=== PATIENT | male | born 1935 | race Caucasian/White ===

== ENCOUNTER 2016-08-25 17:45 | Emergency (ER) | payer OTHER ==
--- NOTE | 2016-08-25 18:54 | EDPHY ---
H & P Time Seen by Provider: 08/25/16 18:52 HPI/ROS: Chief complaint. Chest pain HPI. 81-year-old male here with chest discomfort for 1 day. He also has difficulty walking which previously has been problem manifesting as his heart. He started verapamil 1 week ago. He has a history of atrial fibrillation but refuses to take anticoagulants. He has left chest discomfort without radiation that he describes as an ache. Denies shortness of breath. Similar symptoms to previous NE. ROS Constitutional. no fever/chills, no weakness Eyes. no problems with vision ENT. no sore throat, no nasal drainage Cardiovascular. Left chest pain Respiratory. no shortness of breath, no cough Abdominal. no abdominal pain, no nausea/vomiting, no diarrhea . no problems urinating MS. no calf pain/swelling, no neck/back pain, no joint pain Skin. no rash Lymph. no swollen glands Neuro. Weak legs with difficulty walking Past Medical/Surgical History: Atrial fibrillation, non insulin-dependent diabetes, dyslipidemia, NE Social History: Single, nonsmoker, no alcohol Smoking Status: Never smoked Physical Exam: General Appearance: Alert well-developed male mild distress vital signs are stable Eyes: Pupils equal and round no pallor or injection. ENT, Mouth: Mucous membranes are moist. Respiratory: There are no retractions, lungs are clear to auscultation. Cardiovascular: Regular rate and rhythm. Gastrointestinal: Abdomen is soft and nontender, no masses, bowel sounds normal. Neurological: Awake and alert, sensory and motor exams grossly normal. Skin: Warm and dry, no rashes. Musculoskeletal: Neck is supple nontender. Extremities symmetrical, full range of motion. Psychiatric: Patient is oriented X 3, there is no agitation. Constitutional: Initial Vital Signs Temperature (C) 36.9 C 08/25/16 18:13 Heart Rate 88 08/25/16 18:13 Respiratory Rate 18 08/25/16 18:13 Blood Pressure 154/125 H 08/25/16 18:13 O2 Sat (%) 96 08/25/16 18:13 O2 Delivery Mode Room Air Allergies/Adverse Reactions: No Known Allergies Allergy (Verified 08/10/13 18:24) Home Medications: Medication Instructions Recorded Metformin HCl [Metformin 1000 mg] 1,000 mg PO BID 05/29/14 Unknown Secondary Diabetes Med 05/29/14 AZITHROMYCIN [Z-PACK] 500 mg PO DAILY #1 packet 09/22/14 Albuterol [Proventil] 2 puffs IH Q6 PRN #1 aerosol 09/22/14 Benzonatate [Tessalon Pearles] 200 mg PO BID PRN #15 cap 09/22/14 Medical Decision Making - Diagnostics EKG Interpretation: EKG interpreted by me shows atrial fibrillation with left axis deviation. PVCs are present. No significant ST elevation or depression. Rate is 90 Imaging: Chest x-ray interpreted by me is nonacute. No evidence for pneumonia Procedures: IV normal saline, aspirin ED Course/Re-evaluation: Re-evaluation at 8:15 p.m.. I discussed imaging EKG and lab results with the patient. We discussed treatment plan. I recommended admission for the patient. He declines. We discussed risks and benefits of admission versus going home. He appears competent. I have encouraged him to return tonight for any worsening symptoms and asked him to follow up with his regular physician tomorrow without fail. The patient expresses understanding and agreement - Data Points Laboratory Results: Laboratory Results 08/25/16 18:33 08/25/16 18:33 08/25/16 08/25/16 18:33 18:33 WBC 7.40 10^3/uL 10^3/uL (3.80-9.50) RBC 5.57 10^6/uL 10^6/uL (4.40-6.38) Hgb 16.3 g/dL g/dL (13.7-17.5) Hct 47.5 % % (40.0-51.0) MCV 85.3 fL fL (81.5-99.8) MCH 29.3 pg pg (27.9-34.1) MCHC 34.3 g/dL g/dL (32.4-36.7) RDW 12.3 % % (11.5-15.2) Plt Count 274 10^3/uL 10^3/uL (150-400) MPV 9.9 fL fL (8.7-11.7) Neut % (Auto) 59.0 % % (39.3-74.2) Lymph % (Auto) 23.6 % % (15.0-45.0) [place] % (Auto) 11.5 % % (4.5-13.0) Eos % (Auto) 4.5 % % (0.6-7.6) Baso % (Auto) 0.9 % % (0.3-1.7) Nucleat RBC Rel Count 0.0 % % (0.0-0.2) Absolute Neuts (auto) 4.36 10^3/uL 10^3/uL (1.70-6.50) Absolute Lymphs (auto) 1.75 10^3/uL 10^3/uL (1.00-3.00) Absolute Monos (auto) 0.85 10^3/uL H 10^3/uL (0.30-0.80) Absolute Eos (auto) 0.33 10^3/uL 10^3/uL (0.03-0.40) Absolute Basos (auto) 0.07 10^3/uL 10^3/uL (0.02-0.10) Absolute Nucleated RBC 0.00 10^3/uL 10^3/uL (0-0.01) Immature Gran % 0.5 % % (0.0-1.1) Immature Gran # 0.04 10^3/uL 10^3/uL (0.00-0.10) Sodium 139 mEq/L mEq/L (134-144) Potassium 4.4 mEq/L mEq/L (3.5-5.2) Chloride 102 mEq/L mEq/L (97-110) Carbon Dioxide 25 mEq/l mEq/l (22-31) Anion Gap 12 mEq/L mEq/L (8-16) BUN 26 mg/dL H mg/dL (7-23) Creatinine 1.4 mg/dL H mg/dL (0.7-1.3) Estimated GFR 49 Glucose 176 mg/dL H mg/dL (70-100) Calcium 9.6 mg/dL mg/dL (8.5-10.4) Troponin I 0.023 ng/mL ng/mL (0-0.034) Medications Given: Discontinued Medications Aspirin (Aspirin) 324 mg PO EDNOW ONE Stop: 08/25/16 19:11 Last Admin: 08/25/16 19:11 Dose: 324 mg Departure - Departure Disposition: Home, Routine, Self-Care Clinical Impression: Chest pain Qualifiers: Chest pain type: unspecified Qualified Code(s): R07.9 - Chest pain, unspecified Atrial fibrillation Qualifiers: Atrial fibrillation type: unspecified Qualified Code(s): I48.91 - Unspecified atrial fibrillation Condition: Fair Instructions: Chest Pain (ED) Additional Instructions: Continue regular medication. Return tonight for worsening chest discomfort or trouble breathing. Follow up tomorrow with Dr. Strauss without fail Referrals: NONE *PRIMARY CARE P,. [Primary Care Provider] - As per Instructions Awais Strauss [Doctor of Osteopathy] - 1 day without fail
[2016-08-25 18:58] LABS: % IMMATURE GRANULYOCYTES 0.5 % (0.0-1.1); ABSOLUTE IMMATURE GRANULOCYTES 0.04 10^3/uL (0.00-0.10); ADD DIFF? NO; ADD MORPH? NO; ADD SCAN? NO; ATYPICAL LYMPHOCYTE FLAG 10 (0-99); FRAGMENT RBC FLAG 0 (0-99); HEMATOCRIT 47.5 % (40.0-51.0); HEMOGLOBIN 16.3 g/dL (13.7-17.5); LEFT SHIFT FLG 0 (0-99); LIPEMIA HEMOLYSIS FLAG 90 (0-99); MEAN CELL HEMOGLOBIN 29.3 pg (27.9-34.1); MEAN CELL HEMOGLOBIN CONCENTR. 34.3 g/dL (32.4-36.7); MEAN CELL VOLUME 85.3 fL (81.5-99.8); MEAN PLATELET VOLUME 9.9 fL (8.7-11.7); PLATELET CLUMPS FLAG 30 (0-99); PLATELET COUNT 274 10^3/uL (150-400); RED BLOOD CELL COUNT 5.57 10^6/uL (4.40-6.38); RED CELL DISTRIBUTION WIDTH 12.3 % (11.5-15.2)
[2016-08-25 19:05] LABS: ANION GAP 12 mEq/L (8-16); CALCIUM 9.6 mg/dL (8.5-10.4); CARBON DIOXIDE 25 mEq/l (22-31); CHLORIDE 102 mEq/L (97-110); CREATININE 1.4 mg/dL (0.7-1.3); GLOMERULAR FILTRATION RATE 49; GLUCOSE 176 mg/dL (70-100); POTASSIUM 4.4 mEq/L (3.5-5.2); SODIUM 139 mEq/L (134-144)
[2016-08-25] MEDS ORDERED: ASPIRIN 81 MG CHEWABLE TAB ONE (19:08)
[2016-08-25] MEDS ORDERED: ASPIRIN 81 MG CHEWABLE TAB PO ONE (19:10)
[2016-08-25 19:17] LABS: TROPONIN I 0.023 ng/mL (0-0.034)
[2016-08-25 20:12] VITALS: BP 135/79; PULSE 91; RESP 17; O2SAT 92
[2016-08-25 20:25] VITALS: TEMP 97.7
== END 2016-08-25 20:25 | disposition home or self-care (01) ==
DX: I48.91 Unspecified atrial fibrillation (principal); E11.9 Type 2 diabetes mellitus without complications; I25.2 Old myocardial infarction

== ENCOUNTER 2016-08-28 20:51 | Emergency (ER) | payer OTHER ==
--- NOTE | 2016-08-28 21:34 | EDPHY ---
H & P Stated Complaint: dizzy, fell at approx 1400, new left facial droop, slurred speech Time Seen by Provider: 08/28/16 21:18 HPI/ROS: CHIEF COMPLAINT: Stroke HISTORY OF PRESENT ILLNESS: The patient is an 81-year-old man who is brought to the emergency department by his girlfriend for slurred speech, left-sided facial droop and left-sided arm weakness. She states that he was normal when she left for mosque at 8 o'clock this morning. He called her to ask when she was going to get home at 3:30 p.m. and she could tell that his speech was somewhat slurred but the phone was not very clear. He also told her that he fell sometime while she was away. He does not have any signs of injury. The patient answers most questions appropriately but is not precise on the time frame or exactly what happened today. He has a history of diabetes and takes metformin. Atrial fibrillation on aspirin only. No other blood thinners. 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 REVIEW OF SYSTEMS: Constitutional: denies: chills, fever, recent illness, recent injury EENTM: denies: blurred vision, double vision, nose congestion Respiratory: denies: cough, shortness of breath Cardiac: denies: chest pain, irregular heart rate, lightheadedness, palpitations Gastrointestinal/Abdominal: denies: abdominal pain, diarrhea, nausea, vomiting, blood streaked stools Genitourinary: denies: dysuria, frequency, hematuria, pain Musculoskeletal: denies: joint pain, muscle pain Skin: denies: lesions, rash, jaundice, bruising Neurological: See HPI Hematologic/Lymphatic: denies: blood clots, easy bleeding, easy bruising Immunologic/allergic: denies: HIV/AIDS, transplant EXAM: GENERAL: Well-appearing, well-nourished and in no acute distress. HEAD: Atraumatic, normocephalic. EYES: Pupils equal round and reactive to light, extraocular movements intact, sclera anicteric, conjunctiva are normal. ENT: TMs normal, nares patent, oropharynx clear without exudates. Moist mucous membranes. NECK: Normal range of motion, supple without lymphadenopathy or JVD. LUNGS: Breath sounds clear to auscultation bilaterally and equal. No wheezes rales or rhonchi. HEART: Regular rate and rhythm without murmurs, rubs or gallops. ABDOMEN: Soft, nontender, normoactive bowel sounds. No guarding, no rebound. No masses appreciated. BACK: No CVA tenderness, no spinal tenderness, step-offs or deformities EXTREMITIES: Normal range of motion, no pitting or edema. No clubbing or cyanosis. NEUROLOGICAL: Left-sided facial droop, crooked smile, tongue deviates slightly to the right. Left-sided pronator drift mild, normal sensationin face and extremities, NIH stroke score 4, 2 for facial droop, 1 for left arm drift and 1 for dysarthria PSYCH: Normal mood, normal affect. SKIN: Warm, dry, normal turgor, no visible rashes or lesions. Source: Patient Exam Limitations: No limitations - Personal History Current Tetanus/Diphtheria Vaccine: Yes Current Tetanus Diphtheria and Acellular Pertussis (TDAP): Yes - Medical/Surgical History Hx Asthma: No Hx Chronic Respiratory Disease: No Hx Diabetes: Yes Hx Cardiac Disease: Yes Hx Renal Disease: Yes Hx Cirrhosis: No Hx Alcoholism: No Hx HIV/AIDS: No Hx Splenectomy or Spleen Trauma: No Other PMH: hyperlipidemia; [place], niddm, CABG, atrial fibrillation - Family History Significant Family History: Hypertension - Social History Smoking Status: Never smoked Alcohol Use: Sober Drug Use: None Constitutional: Initial Vital Signs Temperature (C) 36.3 C 08/28/16 21:03 Heart Rate 79 08/28/16 21:03 Respiratory Rate 18 08/28/16 21:03 Blood Pressure 139/75 H 08/28/16 21:03 O2 Sat (%) 95 08/28/16 21:03 O2 Delivery Mode Room Air Allergies/Adverse Reactions: No Known Allergies Allergy (Verified 08/10/13 18:24) Home Medications: Medication Instructions Recorded Metformin HCl [Metformin 1000 mg] 1,000 mg PO BID 05/29/14 Unknown Secondary Diabetes Med 05/29/14 Aspirin 81mg (*) 08/28/16 GLIPIZIDE 08/28/16 Medical Decision Making - Diagnostics EKG Interpretation: An EKG obtained and was read and documented in trace view. Please see trace view for full reading and report. Atrial fibrillation, no acute ischemic changes ED Course/Re-evaluation: 9:33 p.m. I spoke with [facility]. They agree that he is not a tPA candidate because the time of onset. Last known normal was around 8:00 a.m.. He could technically be a candidate for interventional treatment if he has a large vessel occlusion which is unlikely because of his low NIH stroke score however possible because of his history of atrial fibrillation that is untreated. We discussed his creatinine level of 1.5 and agree to proceed with the angiogram at this time. and hydrated afterwards 10:30 p.m. I discussed again with Dr. Duffy at [facility]. He recommends flying the patient there. He has good with the patient's current blood pressure 150/ 120. Patient and girlfriend agree with this plan. Differential Diagnosis: Partial list of the Differential diagnosis considered include but were not limited to; CVA, infection, dehydration, electrolyte abnormality, hypoglycemia and although unlikely based on the history and physical exam, I also considered head injury, dissection, aneurysm. Critical Care Time: I spent a total of 45 minutes of critical care time in obtaining history, performing a physical exam, bedside monitoring of interventions, collecting and interpreting tests and discussion with consultants but not including time spent performing procedures [and exclusive of the PA's time]. - Data Points Laboratory Results: Laboratory Results 08/28/16 21:20 08/28/16 21:25 08/28/16 08/28/16 08/28/16 21:25 21:23 21:20 WBC RBC Hgb POC Hgb 16.7 gm/dL gm/dL (14.5-17.3) Hct POC Hct 49 % % (42.8-50.6) MCV MCH MCHC RDW Plt Count MPV Neut % (Auto) Lymph % (Auto) [place] % (Auto) Eos % (Auto) Baso % (Auto) Nucleat RBC Rel Count Absolute Neuts (auto) Absolute Lymphs (auto) Absolute Monos (auto) Absolute Eos (auto) Absolute Basos (auto) Absolute Nucleated RBC Immature Gran % Immature Gran # PT 14.2 SEC SEC (12.0-15.0) INR 1.11 (0.83-1.16) POC Sodium 138 mEq/L mEq/L (134-144) Sodium 138 mEq/L mEq/L (134-144) POC Potassium 3.9 mEq/L mEq/L (3.3-5.0) Potassium 4.3 mEq/L mEq/L (3.5-5.2) POC Chloride 101 mEq/L mEq/L (96-108) Chloride 101 mEq/L mEq/L (97-110) Carbon Dioxide 23 mEq/l mEq/l (22-31) Anion Gap 14 mEq/L mEq/L (8-16) POC BUN 25 mg/dL H mg/dL (7-23) BUN 24 mg/dL H mg/dL (7-23) Creatinine 1.5 mg/dL H mg/dL (0.7-1.3) POC Creatinine 1.5 mg/dL mg/dL (0.8-1.5) Estimated GFR 45 Glucose 286 mg/dL H mg/dL (70-100) POC Glucose 286 mg/dL H mg/dL (70-100) Calcium 9.4 mg/dL mg/dL (8.5-10.4) Troponin I 0.056 ng/mL H ng/mL (0-0.034) 08/28/16 21:20 WBC 6.86 10^3/uL 10^3/uL (3.80-9.50) RBC 5.59 10^6/uL 10^6/uL (4.40-6.38) Hgb 16.6 g/dL g/dL (13.7-17.5) POC Hgb Hct 46.9 % % (40.0-51.0) POC Hct MCV 83.9 fL fL (81.5-99.8) MCH 29.7 pg pg (27.9-34.1) MCHC 35.4 g/dL g/dL (32.4-36.7) RDW 12.0 % % (11.5-15.2) Plt Count 290 10^3/uL 10^3/uL (150-400) MPV 9.8 fL fL (8.7-11.7) Neut % (Auto) 60.1 % % (39.3-74.2) Lymph % (Auto) 23.2 % % (15.0-45.0) [place] % (Auto) 11.2 % % (4.5-13.0) Eos % (Auto) 3.9 % % (0.6-7.6) Baso % (Auto) 1.0 % % (0.3-1.7) Nucleat RBC Rel Count 0.0 % % (0.0-0.2) Absolute Neuts (auto) 4.12 10^3/uL 10^3/uL (1.70-6.50) Absolute Lymphs (auto) 1.59 10^3/uL 10^3/uL (1.00-3.00) Absolute Monos (auto) 0.77 10^3/uL 10^3/uL (0.30-0.80) Absolute Eos (auto) 0.27 10^3/uL 10^3/uL (0.03-0.40) Absolute Basos (auto) 0.07 10^3/uL 10^3/uL (0.02-0.10) Absolute Nucleated RBC 0.00 10^3/uL 10^3/uL (0-0.01) Immature Gran % 0.6 % % (0.0-1.1) Immature Gran # 0.04 10^3/uL 10^3/uL (0.00-0.10) PT INR POC Sodium Sodium POC Potassium Potassium POC Chloride Chloride Carbon Dioxide Anion Gap POC BUN BUN Creatinine POC Creatinine Estimated GFR Glucose POC Glucose Calcium Troponin I Medications Given: Discontinued Medications Sodium Chloride (Ns) 1,000 mls @ 0 mls/hr IV ONCE ONE PRN Reason: Wide Open Stop: 08/28/16 22:26 Last Admin: 08/28/16 22:35 Dose: 1,000 mls Point of Care Test Results: 08/28/16 21:23 POC Sodium 138 POC Potassium 3.9 POC Chloride 101 POC BUN 25 H POC Creatinine 1.5 POC Glucose 286 H Departure - Departure Disposition: Acute Care Hospital Not [facility] Clinical Impression: CVA (cerebral vascular accident) Qualifiers: CVA mechanism: unspecified Qualified Code(s): I63.9 - Cerebral infarction, unspecified Condition: Critical Referrals: NONE *PRIMARY CARE P,. [Primary Care Provider] - As per Instructions
--- NOTE | 2016-08-28 21:34 | CPEKG ---
Heart Rate: 99 RR Interval: 606 QRSD Interval: 96 QT Interval: 380 QTC Interval: 488 QRS [place]: 13 T Wave [place]: 4 EKG Severity - ABNORMAL ECG - EKG Impression: ATRIAL FIBRILLATION, V-RATE 79-146 EKG Impression: BORDERLINE INFERIOR Q WAVES EKG Impression: BORDERLINE PROLONGED QT INTERVAL EKG Impression: Similar to previous Electronically Signed By: Boston Conway 28-Aug-2016 21:37:18
[2016-08-28 21:41] VITALS: RESP 16
[2016-08-28 21:41] LABS: % IMMATURE GRANULYOCYTES 0.6 % (0.0-1.1); ABSOLUTE IMMATURE GRANULOCYTES 0.04 10^3/uL (0.00-0.10); ADD DIFF? NO; ADD MORPH? NO; ADD SCAN? NO; ATYPICAL LYMPHOCYTE FLAG 0 (0-99); FRAGMENT RBC FLAG 0 (0-99); HEMATOCRIT 46.9 % (40.0-51.0); HEMOGLOBIN 16.6 g/dL (13.7-17.5); LEFT SHIFT FLG 0 (0-99); LIPEMIA HEMOLYSIS FLAG 90 (0-99); MEAN CELL HEMOGLOBIN 29.7 pg (27.9-34.1); MEAN CELL HEMOGLOBIN CONCENTR. 35.4 g/dL (32.4-36.7); MEAN CELL VOLUME 83.9 fL (81.5-99.8); MEAN PLATELET VOLUME 9.8 fL (8.7-11.7); PLATELET CLUMPS FLAG 10 (0-99); PLATELET COUNT 290 10^3/uL (150-400); RED BLOOD CELL COUNT 5.59 10^6/uL (4.40-6.38)
[2016-08-28] MEDS ORDERED: IOPAMIDOL (ISOVUE 370) 100 ML BTL IV ONE (21:48)
[2016-08-28 22:06] LABS: ANION GAP 14 mEq/L (8-16); CALCIUM 9.4 mg/dL (8.5-10.4); CARBON DIOXIDE 23 mEq/l (22-31); CHLORIDE 101 mEq/L (97-110); CREATININE 1.5 mg/dL (0.7-1.3); GLOMERULAR FILTRATION RATE 45; GLUCOSE 286 mg/dL (70-100); POTASSIUM 4.3 mEq/L (3.5-5.2); SODIUM 138 mEq/L (134-144)
[2016-08-28 22:17] LABS: INR 1.11 (0.83-1.16); PROTIME(PATIENT) 14.2 SEC (12.0-15.0)
[2016-08-28 22:18] LABS: TROPONIN I 0.056 ng/mL (0-0.034)
[2016-08-28] MEDS ORDERED: NS 1,000 ML IV ONE (22:25)
[2016-08-28 22:39] VITALS: TEMP 97.9
[2016-08-28 22:56] VITALS: BP 160/94; PULSE 94; O2SAT 96
== END 2016-08-28 22:54 | disposition short-term general hospital (02) ==
DX: I63.9 Cerebral infarction, unspecified (principal); I25.2 Old myocardial infarction; E11.9 Type 2 diabetes mellitus without complications; Z79.82 Long term (current) use of aspirin; Z95.1 Presence of aortocoronary bypass graft
CPT/HCPCS: 70450; 70496; 70498; 93005; 99291; Q9967; 82947-QW